=== PATIENT | male | born 1960 | race African-American/Black ===

== ENCOUNTER 2018-02-05 19:11 | Emergency (ER) | payer OTHER, MEDICAID ==
[~2018-02-05] VITALS: Ht 175.3 cm; Wt 97.5 kg
[~2018-02-05 19:11] MED LIST: COREG25 M1; GLUCOPHAGE1000 MG; HUMALOG100 UNIT/2 SUBQ; HYDROCODONE-AP1 EAC6 PO; KEFLEX500 M1 PO; LORCET 5-325 M1 EACH; MOBIC15 MG; NOVOLOG100 UNIT/M SUBQ; PACERONE 200 M200 MG; PROPRANOLOL 1010 MG
[2018-02-05] MEDS ORDERED: LIPITOR 20 MG T20 M1 (19:27)
[2018-02-05] MEDS ORDERED: KEFLEX500 M1 PO (20:02)
[2018-02-05] MEDS ORDERED: NORCO 5-325 TA1 EACH PO (20:02)
[2018-02-05] MEDS ORDERED: BACTRIM DS TAB1 EACH PO (20:02)
[2018-02-05 21:07] VITALS: BP 161/70
== END 2018-02-05 21:08 | disposition home or self-care (01) ==
LOC: M.ERS 19:11
DX: L02.811 Cutaneous abscess of head [any part, except face] (principal); E11.9 Type 2 diabetes mellitus without complications; I10 Essential (primary) hypertension; I25.2 Old myocardial infarction; I25.10 Atherosclerotic heart disease of native coronary artery without angina pectoris; Z88.1 Allergy status to other antibiotic agents; Z88.8 Allergy status to other drugs, medicaments and biological substances